=== PATIENT | male | born 1960 | race Caucasian/White ===

== ENCOUNTER 2017-09-21 18:21 | Emergency (ER) | END 2017-09-21 19:40 | disposition home or self-care (01) ==

== ENCOUNTER 2017-11-08 10:45 | Emergency (ER) | END 2017-11-08 14:12 | disposition home or self-care (01) ==

== ENCOUNTER 2018-07-25 12:23 | Emergency (ER) | payer OTHER ==
[~2018-07-25] VITALS: Ht 165.1 cm; Wt 77.0 kg
[~2018-07-25 12:23] MED LIST: ACET325T33 PO; ALBU8.5H8 INH; AMLO-147 PO; AMOX500C2 PO; BENA20TA4 PO; SIMV20TA PO
[2018-07-25 12:57] VITALS: Ht 165.1 cm; Wt 77.0 kg
[2018-07-25] MEDS ORDERED: FLUORESCEIN STRIP RIGHT EYE ONE (14:00)
[2018-07-25] MEDS ORDERED: TETRACAINE 0.5% 4 ML OPH RIGHT EYE ONE (14:00)
[2018-07-25] MEDS ORDERED: OFLO5DRO46 RIGHT EYE (14:16)
--- NOTE | 2018-07-25 14:25 | ERD ---
ER Documentation Chief Complaint Chief Complaint RIGHT EYE PAIN SINCE YESTERDAY HPI 57-year-old male presenting with pain to his right eye. 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 He thinks that a piece of it flew into his eye. He denies any visual deficits. He wears glasses but no contacts. Has not use any medications on the area. Medical history of hypertension. NKDA. Surgical history denies. Social history denies ROS All systems reviewed and are negative except as per history of present illness. Medications Home Meds Active Scripts Ofloxacin* (Ocuflox*) 0.3%-5 Ml Ophth Drops, 1 DROP RIGHT EYE QID, #1 BOTTLE Prov:MIKEY ROSENBAUM PA-C 07/25/18 Acetaminophen* (Tylenol*) 325 Mg Tablet, 1 TAB PO Q8 PRN for PAIN AND OR ELEVATED TEMP, #20 TAB Prov:JOAQUÍN WOODY MD 11/08/17 Albuterol Sulfate* (Proair HFA*) 8.5 Gm Hfa.aer.ad, 2 PUFF INH Q4H PRN for WHEEZING AND SOB, #1 INHALER Prov:JOAQUÍN WOODY MD 11/08/17 Amoxicillin* (Amoxicillin*) 500 Mg Cap, 500 MG PO TID for 10 Days, CAP Prov:JOAQUÍN WOODY MD 11/08/17 Reported Medications Amlodipine Besylate* (Amlodipine Besylate*) 10 Mg Tablet, 10 MG PO DAILY, #30 TAB 09/21/17 Simvastatin* (Zocor*) 20 Mg Tablet, 20 MG PO QHS, #30 TAB 09/21/17 Benazepril Hcl* (Benazepril Hcl*) 20 Mg Tablet, 20 MG PO DAILY, #30 TAB 09/21/17 Allergies Allergies: Coded Allergies: No Known Allergy (Unverified , 11/08/17) PMhx/Soc History of Surgery: No Anesthesia Reaction: No Hx Neurological Disorder: No Hx Respiratory Disorders: No Hx Cardiac Disorders: Yes (HTN, HYPERLIPIDEMIA) Hx Psychiatric Problems: No Hx Miscellaneous Medical Probl: Yes (DM) Hx Alcohol Use: No Hx Substance Use: No Hx Tobacco Use: No FmHx Family History: No diabetes, No coronary disease, No other Physical Exam Vitals Vital Signs Date Temp Pulse Resp B/P (MAP) Pulse Ox O2 O2 Flow FiO2 Time Delivery Rate 07/25/18 99.1 72 19 136/78 98 12:57 (97) Physical Exam GENERAL: The patient is well-appearing, well-nourished, in no acute distress HEENT: Atraumatic. Conjunctivae are pink. Pupils equal, round, and reactive to light. There is no scleral icterus. Tympanic membranes clear bilaterally. Oropharynx clear. injection noted of the right eye. NECK: C-spine is soft and supple. There is no meningismus. There is no cervical lymphadenopathy. CHEST: Clear to auscultation bilaterally. There are no rales, wheezes or rhonchi. HEART: Regular rate and rhythm. No murmurs, clicks, rubs or gallops. Results 24 hrs Current Medications Medications Dose Sig/Lexa Start Time Status Last (Trade) Ordered Route PRN Stop Time Admin Dose Reason Admin Tetracaine 1 drop ONCE ONCE 07/25/18 DC HCl RIGHT EYE 14:00 (Tetracaine 07/25/18 14:01 0.5% Steri-Unit Yamilet) Fluorescein 1 strip ONCE ONCE 07/25/18 DC Sodium RIGHT EYE 14:00 ([id number] 07/25/18 14:01 p) Procedures/MDM ER course: Fluorescein stain applied to the right eye. No foreign body appreciated. Small abrasion noted over the cornea. MDM: 57-year-old male presenting with corneal abrasion. I will suspicion for visual deficit. Patient discharged with supportive medications. I have low suspicion for retained foreign body. Patient is recommended follow-up with director of entertainment. All questions answered at discharge Departure Diagnosis: Primary Impression: Corneal abrasion Condition: Stable Patient Instructions: Corneal Abrasion Referrals: [facility] Hours: Mon - Fri 9:00 AM - 5:00 PM Additional Instructions: FOLLOW UP WITH YOUR PRIMARY CARE PHYSICIAN TOMORROW.Return to this facility if you are not improving as expected. MIKEY ROSENBAUM PA-C Jul 25, 2018 14:25
[2018-07-25 14:39] VITALS: BP 125/71; PULSE 68; RESP 18
== END 2018-07-25 14:41 | disposition home or self-care (01) ==
LOC: FTE 12:23
DX: S05.01XA Injury of conjunctiva and corneal abrasion without foreign body, right eye, initial encounter (principal); I10 Essential (primary) hypertension; E11.9 Type 2 diabetes mellitus without complications; X58.XXXA Exposure to other specified factors, initial encounter; Y92.69 Other specified industrial and construction area as the place of occurrence of the external cause
CPT/HCPCS: Z7502; Z7610; 99283